=== PATIENT | female | born 1960 ===

== ENCOUNTER → 2020-08-19 07:49 | Outpatient (CLI) | payer OTHER ==
[~2020-08-19 07:49] MED LIST: ACTIGALL300 MG; ALTACE5 MG; TOPROL XL25 M1
== END | disposition home or self-care (01) ==
LOC: NUCLEAR 07:49
PROVIDERS: ATTEND Internal Medicine Cardiovascular Disease
DX: R07.89 Other chest pain (principal)
CPT/HCPCS: 78452; 93017; A9500